=== PATIENT | male | born 1970 | race Caucasian/White ===

== ENCOUNTER 2019-06-21 08:13 | Day surgery (SDC) | payer BC ==
[~2019-06-21] VITALS: Ht 182.9 cm; Wt 86.2 kg
[~2019-06-21 08:13] MED LIST: REMERON30 MG PO; SYNTHROID100 MCG PO
[2019-06-21 10:01] VITALS: BP 121/72; Ht 182.9 cm; Wt 86.2 kg
[2019-06-21] MEDS ORDERED: HYDROCODON-ACE1 EA10 PO (14:42)
--- NOTE | 2019-06-21 18:16 | NUR ---
1708 IV DC'D. CATHETER TIP INTACT. NO BLEEDING AT SITE. BANDAID APPLIED. 1744 PT WAS ASSISTED IN GETTING DRESSED AND SLING IN PROPER POSITION. PT DISCHARGED HOME VIA WC TO PERSONAL VEHICLE.
--- NOTE | 2019-06-23 10:08 | OP ---
PATIENT NAME: LEODAN RUSSO MEDICAL RECORD: [id number] :68 LOCATION:[facility] ADMISSION DATE: SURGEON: JUANITO GILLESPIE MD DATE OF OPERATION: 06/21/2019 PREOPERATIVE DIAGNOSES: 1. SLAP lesion of the left shoulder. 2. Impingement syndrome of the left shoulder. 3. Acromioclavicular arthritis of the left shoulder. POSTOPERATIVE DIAGNOSES: 1. SLAP lesion of the left shoulder. 2. Impingement syndrome of the left shoulder. 3. Acromioclavicular arthritis of the left shoulder. PROCEDURES: 1. Arthroscopic SLAP repair. 2. Arthroscopic distal clavicle excision done through separate incision - 1 cm. 3. Arthroscopic subacromial decompression, acromioplasty and bursectomy. SURGEON: Juanito Gillespie MD ASSEMBLER MOVEMENT: David Ruano INTRAOPERATIVE COMPLICATIONS: None. SUMMARY OF PATHOLOGIC FINDINGS: The patient was indeed found to have a superior labral tear from anterior to posterior. Furthermore, the patient had biceps tendinitis; however, it was primarily low, junctional and not at the groove. The patient did have impingement syndrome. OPERATIVE SUMMARY IN DETAIL: After obtaining the appropriate preoperative orthopedic surgery consent as well as anesthetic consultation, evaluation, and clearance, the patient was brought to the operating room and placed on the operating table in supine position. After adequate general laryngeal mask airway was administered, the patient was placed in the right lateral decubitus position. All pressure points were well padded to include down leg peroneal pad as well as axillary roll. He was held firmly to the operating table using vacuum pack suction system. The patient's left upper extremity and shoulder were then prepped and draped in a routine sterile fashion. The arm was held in Arthrex traction boom in 30 degrees of forward flexion, 30 degrees of abduction, and 10 pounds of traction laterally. At this point, the appropriate timeout was taken and agreed upon by all. Incision was made and arthroscopic portal was created posteriorly. Anterior portal was created in the anterior safe interval under direct arthroscopic visualization. Diagnostic arthroscopy did show the above-mentioned findings. Combination of both the arthroscopic resector as well as the arthroscopic periosteal elevators were used to repair the anterior and superior aspect of the labrum for reapproximation with suture anchors. Tertiary portal was created. A position for suture anchors both anterior and posterior to the bicipital labral complex was created. Labral tape was then passed and doubled over and then anchored with a 2.9 PushLock anteriorly. This step was repeated posterior to the bicipital labral junction. This resulted in good reapproximation of the labrum both anteriorly and posteriorly. The patient was known to have a few areas of mild grade I chondromalacia with some chondral fissuring in keeping with his long-term weightlifting. Having completed this, OPERATIVE REPORT [id number] LEODAN RUSSO attention was turned to the subacromial space through the accessory lateral portal. The Robeline tissue ablation system was utilized to denude the undersurface of the acromion of all soft tissue elements and release the coracoacromial ligament. A 5-0 barrel bur was then used to create acromioplasty to the level of acromioclavicular joint and then through a separate anterior arthroscopic portal under direct visualization, a 5-0 barrel bur was then used to take down 1 cm of the distal clavicle. Having completed this, all bursa was taken down anteriorly, posteriorly, laterally as well as superiorly. Arthroscopy portals were then closed in routine interrupted fashion using 4-0 Prolene. Sterile dressings were applied. The patient was awakened and taken to recovery room in stable condition. All final needle and sponge counts were correct. TRANSINT:[id number] Voice Confirmation ID: [id number] DOCUMENT ID: [id number] JOSE MIGUEL MENCHACA, JUANITO REID at 1008 CC: [id number] DICTATION DATE: 06/21/19 1452 HUMAN RELATIONS TEACHER: 06/22/19 0026 [facility] 06/21/19 [facility] [address] [id number]
== END 2019-06-21 17:44 | disposition home or self-care (01) ==
LOC: D.PAN 08:13 → D.OPS 12:15 → D.PAN 17:44
PROVIDERS: ATTEND Orthopaedic Surgery
DX: S43.432A Superior glenoid labrum lesion of left shoulder, initial encounter (principal); X58.XXXA Exposure to other specified factors, initial encounter; M75.42 Impingement syndrome of left shoulder; M25.512 Pain in left shoulder; M13.812 Other specified arthritis, left shoulder

== ENCOUNTER 2019-11-04 09:06 | Day surgery (SDC) | payer BC ==
[~2019-11-04] VITALS: Ht 182.9 cm; Wt 86.2 kg
[~2019-11-04 09:06] MED LIST changes: +HYDROCODON-ACE1 EA10 PO
[2019-11-04 09:35] VITALS: BP 113/69; Ht 182.9 cm; Wt 86.2 kg
[2019-11-04] MEDS ORDERED: HYDROCODON-ACE1 EA10 PO (12:26)
--- NOTE | 2019-11-04 15:29 | NUR ---
1320 IV DC'D. CATHETER TIP INTACT. NO BLEEDING AT SITE. BANDAID APPLIED.
--- NOTE | 2019-11-18 10:34 | OP ---
PATIENT NAME: LEODAN RUSSO MEDICAL RECORD: [id number] :68 LOCATION:[facility] ADMISSION DATE: SURGEON: JUANITO GILLESPIE MD DATE OF OPERATION: 11/04/2019 PREOPERATIVE DIAGNOSIS: Postoperative adhesive capsulitis of the left shoulder. POSTOPERATIVE DIAGNOSIS: Postoperative adhesive capsulitis of the left shoulder. PROCEDURE: Manipulation of the left shoulder under anesthesia. SURGEON: Juanito Gillespie MD ANESTHESIA: TIVA with the preoperative supraclavicular block. INTRAOPERATIVE COMPLICATIONS: None. SUMMARY OF PATHOLOGIC FINDINGS: The patient had a very tight shoulder that required a substantial amount of effort to get good release; however, it did release eventually. OPERATIVE SUMMARY IN DETAIL: After obtaining the appropriate preoperative orthopedic surgery consent as well as anesthetic consultation, evaluation and clearance, the patient was brought to the operating room and placed on the operating table in a supine position. After adequate general TIVA anesthesia was administered, the scapula was stabilized. The arm was first manipulated in abduction followed by external rotation, internal rotation, flexion and extension. Good release was achieved, albeit somewhat difficult in this very muscular gentleman. Having completed this, the patient was awakened and taken back to outpatient in stable condition. TRANSINT:[id number] Voice Confirmation ID: [id number] DOCUMENT ID: [id number] JUANITO GILLESPIE MD at 1034 CC: [id number] DICTATION DATE: 11/18/1909 MANUFACTURING DEVELOPMENT ENGINEER: 11/18/[address] [facility] 11/04/19 [place] [id number]
== END 2019-11-04 13:32 | disposition home or self-care (01) ==
LOC: D.OPS 09:06
PROVIDERS: ATTEND Orthopaedic Surgery
DX: M75.02 Adhesive capsulitis of left shoulder (principal); M25.512 Pain in left shoulder; E07.9 Disorder of thyroid, unspecified